=== PATIENT | female | born 1980 | race American Indian/Alaskan Native ===

== ENCOUNTER 2019-12-27 13:39 | Emergency (ER) | payer SELFPAY ==
[2019-12-27 14:42] VITALS: BP 107/61
[2019-12-27 16:11] LABS: Basophils % (Auto) 0.5 % (0.0-1.8); Eosinophils # (Auto) 0.4 K/mm3 (0.0-0.4); Eosinophils % (Auto) 5.7 % (0.0-4.3); Hematocrit 42.2 % (30.3-42.9); Hemoglobin 14.3 gm/dl (10.1-14.3); Lymphocytes # (Auto) 1.9 K/mm3 (1.2-5.4); Lymphocytes % (Auto) 27.1 % (13.4-35.0); Mean Corpuscular HGB Conc 34 % (30-34); Mean Corpuscular Volume 96 fl (79-97); Monocytes # (Auto) 0.6 K/mm3 (0.0-0.8); Monocytes % (Auto) 7.9 % (0.0-7.3); Platelet Count 288 K/mm3 (140-440); Red Blood Count 4.38 M/mm3 (3.65-5.03)
[2019-12-27 16:28] LABS: Alanine Aminotransferase 11 units/L (7-56); Albumin 3.9 g/dL (3.9-5); BUN/Creatinine Ratio 16; Blood Urea Nitrogen 13 mg/dL (7-17); Calcium 9.2 mg/dL (8.4-10.2); Hemolysis Index 4
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
== END 2019-12-27 17:06 | disposition home or self-care (01) ==
LOC: ED 13:39
DX: G44.209 Tension-type headache, unspecified, not intractable (principal); H53.9 Unspecified visual disturbance; R20.2 Paresthesia of skin; R00.2 Palpitations; Z79.899 Other long term (current) drug therapy
CPT/HCPCS: 36415; 80053; 84703; 85025; 93005

== ENCOUNTER 2021-08-16 01:00 | Emergency (ER) | payer SELFPAY ==
[2021-08-16 02:15] LABS: Basophils % (Auto) 0.5 % (0.0-1.8); Eosinophils # (Auto) 0.5 K/mm3 (0.0-0.4); Lymphocytes # (Auto) 2.3 K/mm3 (1.2-5.4); Lymphocytes % (Auto) 23.6 % (13.4-35.0); Mean Corpuscular HGB Conc 36 % (30-34); Mean Corpuscular Volume 95 fl (79-97); Monocytes # (Auto) 0.7 K/mm3 (0.0-0.8); Monocytes % (Auto) 6.8 % (0.0-7.3); Platelet Count 271 K/mm3 (140-440); Red Blood Count 4.24 M/mm3 (3.65-5.03); Red Cell Distribution Width 12.4 % (13.2-15.2)
[2021-08-16 02:19] LABS: Hematocrit 40.2 % (30.3-42.9); Hemoglobin 14.4 gm/dl (10.1-14.3)
[2021-08-16 02:36] LABS: Alanine Aminotransferase 11 units/L (7-56); Albumin 4.7 g/dL (3.9-5); Blood Urea Nitrogen 11 mg/dL (7-17); Calcium 9.4 mg/dL (8.4-10.2); Hemolysis Index 7
[2021-08-16 03:07] LABS: BUN/Creatinine Ratio 16
--- NOTE | 2021-08-16 03:49 | XRay Report ---
CHEST 2 VIEWS INDICATION / CLINICAL INFORMATION: CHEST PAIN. COMPARISON: None available. FINDINGS: SUPPORT DEVICES: None. HEART / MEDIASTINUM: No significant abnormality. LUNGS / PLEURA: No significant pulmonary or pleural abnormality. No pneumothorax. BONES: No significant osseous abnormality. ADDITIONAL FINDINGS: No significant additional findings. IMPRESSION: 1. No active cardiopulmonary disease. Signer Name: Sincere Richardson II, MD Signed: 08/16/2021 3:44 AM Workstation Name: [id number]
--- NOTE | 2021-08-16 04:12 | Emergency Department Report ---
ED Chest Pain HPI - General Chief Complaint: Chest Pain Stated Complaint: CHEST PAIN/FEELING JITTERY Time Seen by Provider: 08/16/21 03:29 Source: patient Mode of arrival: Ambulatory Limitations: No Limitations - History of Present Illness Initial Comments: PT C/O LIGHTHEADINESS, AND RT SIDED CHEST PAIN TO TOUCH X 2 HRS [employer] pain started yesterday , tender to touch on right area with no radiation -: Gradual, hour(s) Onset: during rest Pain Location: right chest Pain Radiation: none Severity: mild Consistency: intermittent Improves With: nothing Worsens With: inspiration re: denies: nausea, vomting, diaphoresis, dyspnea, sense of impending doom - Related Data Previous Rx's Medication Instructions Recorded Last Taken Type Ibuprofen [Motrin] 600 mg PO Q8H PRN #60 tablet 04/18/15 Unknown Rx methOCARBAMOL [Robaxin TAB] 500 mg PO BID #10 tab 04/18/15 Unknown Rx traMADoL [Ultram] 50 mg PO Q6HR PRN #14 tablet 04/18/15 Unknown Rx Allergies Allergy/AdvReac Type Severity Reaction Status Date / Time No Known Allergies Allergy Unverified 04/18/15 01:03 Heart Score - HEART Score History: Slightly suspicious EKG: Non-specific Age: < 45 Risk factors: No known risk factors Troponin: < normal limit HEART Score: 1 - EKG Read Time Time EKG Completed: 01:06 EKG Read Time: 01:06 - Critical Actions Critical Actions: 0-3 pts:0.9-1.7%risk of adverse cardiac event.Candidate for discharge ED Review of Systems ROS: Stated complaint: CHEST PAIN/FEELING JITTERY Other details as noted in HPI Constitutional: denies: chills, fever Eyes: denies: eye pain, eye discharge, vision change ENT: denies: ear pain, throat pain Respiratory: denies: cough, shortness of breath, wheezing Cardiovascular: denies: chest pain, palpitations Endocrine: no symptoms reported Gastrointestinal: denies: abdominal pain, nausea, diarrhea Genitourinary: denies: urgency, dysuria, discharge Musculoskeletal: denies: back pain, joint swelling, arthralgia Skin: denies: rash, lesions Neurological: denies: headache, weakness, paresthesias Psychiatric: denies: anxiety, depression Hematological/Lymphatic: denies: easy bleeding, easy bruising ED Past Medical Hx - Past Medical History Previous Medical History?: No Hx Hypertension: No - Social History Smoking Status: Never Smoker Substance Use Type: None - Medications Home Medications: Home Medications Medication Instructions Recorded Confirmed Last Taken Type Ibuprofen [Motrin] 600 mg PO Q8H PRN #60 tablet 04/18/15 Unknown Rx methOCARBAMOL [Robaxin TAB] 500 mg PO BID #10 tab 04/18/15 Unknown Rx traMADoL [Ultram] 50 mg PO Q6HR PRN #14 tablet 04/18/15 Unknown Rx ED Physical Exam - General Limitations: No Limitations General appearance: alert, in no apparent distress - Head Head exam: Present: atraumatic, normocephalic - Eye Eye exam: Present: normal appearance - ENT ENT exam: Present: mucous membranes moist - Neck Neck exam: Present: normal inspection - Respiratory Respiratory exam: Present: normal lung sounds bilaterally, chest wall tenderness - Cardiovascular Cardiovascular Exam: Present: regular rate, normal rhythm. Absent: systolic murmur, diastolic murmur, rubs, gallop - GI/Abdominal GI/Abdominal exam: Present: soft, normal bowel sounds - Extremities Exam Extremities exam: Present: normal inspection - Back Exam Back exam: Present: normal inspection - Neurological Exam Neurological exam: Present: alert, oriented X3 - Psychiatric Psychiatric exam: Present: normal affect, normal mood - Skin Skin exam: Present: warm, dry, intact, normal color. Absent: rash ED Course Vital Signs 08/16/21 01:10 Temperature 98.2 F Pulse Rate 59 L Respiratory 18 Rate Blood Pressure 114/76 O2 Sat by Pulse 100 Oximetry ED Medical Decision Making - Lab Data Result diagrams: 08/16/21 01:56 08/16/21 01:56 - EKG Data -: EKG Interpreted by Tx EKG shows normal: sinus rhythm - EKG Data Interpretation: nonspecific ST-T wave osman - Radiology Data Radiology results: report reviewed, image reviewed - Medical Decision Making work up negative HEart score of 1 , vss, no distress not consistant with ACS looks like muscular pain Critical care attestation.: If time is entered above; I have spent that time in minutes in the direct care of this critically ill patient, excluding procedure time. ED Disposition Clinical Impression: Chest wall pain Disposition: HOME / SELF CARE / HOMELESS Is pt being admited?: No Does the pt Need Aspirin: No Condition: Stable Instructions: Nonspecific Chest Pain, Adult, Nonspecific Chest Pain, Adult, [id number], Chest Wall Pain, [id number] Referrals: PRIMARY CARE,MD [Primary Care Provider] - 3-5 Days
[2021-08-16 04:18] VITALS: BP 118/78
--- NOTE | 2021-08-16 10:17 | Electrocardiograph Report ---
[facility] Test Date: 2021-08-16 Test Time: 01:06:46 Pat Name: ELISA ASTUDILLO Department: Room: Gender: F Cia Agent: LEON : 1980 Requested By: LELIA RAJAN Order Number: [id number] Reading MD: Doc Andre Measurements Intervals [place] Rate: 53 P: 50 MS: 139 QRS: -55 QRSD: 80 T: 26 QT: 450 QTc: 422 Interpretive Statements Sinus rhythm nonspecific st-t No previous ECG available for comparison Electronically Signed On 08-16-2021 10:17:43 EDT by Doc Andre
== END 2021-08-16 04:17 | disposition home or self-care (01) ==
LOC: ED 01:00
DX: R07.89 Other chest pain (principal); Z79.899 Other long term (current) drug therapy
CPT/HCPCS: 36415; 71046; 80053; 84484; 84703; 85025; 93005; 99283